=== PATIENT | female | born 1960 | race Caucasian/White ===

== ENCOUNTER 2017-09-05 18:45 | Inpatient (IN) | payer MEDICAID ==
[~2017-09-05] VITALS: Ht 149.9 cm; Wt 68.9 kg
[2017-09-05 18:48] VITALS: BP_SYST 106
[2017-09-05 21:06] LABS: BASOPHILS # (AUTO) 0.1 K/uL (0.0-0.2); BASOPHILS % (AUTO) 0.5 % (0.0-2.0); EOSINOPHILS # (AUTO) 0.1 K/uL (0.0-0.4); HEMATOCRIT 46.2 % (36-48); HEMOGLOBIN 15.1 g/dL (12.0-16.0); LYMPHOCYTES # (AUTO) 2.1 K/uL (1.0-5.5); LYMPHOCYTES % (AUTO) 17.9 % (20.5-51.5); MEAN CORPUSCULAR HEMOGLOBIN 33 pg (27-31); MEAN CORPUSCULAR HGB CONC 33 % (32-36); MEAN CORPUSCULAR VOLUME 101 fL (79.0-98.0); MONOCYTES # (AUTO) 0.7 K/uL (0.0-1.0); MONOCYTES % (AUTO) 5.8 % (1.7-9.3); NEUTROPHILS # (AUTO) 8.5 K/uL (1.8-7.7); NEUTROPHILS % (AUTO) 74.8 % (40.0-70.0); PLATELET COUNT (AUTO) 376 K/uL (130-430); RED BLOOD CELL COUNT(AUTO) 4.58 MIL/uL (4.2-6.2); WHITE BLOOD COUNT (AUTO) 11.5 K/uL (4.8-10.8)
[2017-09-05 21:26] LABS: CALCIUM 9.6 mg/dL (8.4-11.0); CREATININE 0.69 mg/dL (0.55-1.30); POTASSIUM 4.1 mmol/L (3.5-5.1)
[2017-09-05 21:32] LABS: ALBUMIN 2.4 g/dL (3.4-4.8); TOTAL BILIRUBIN 0.2 mg/dL (0.0-1.0)
[2017-09-05] MEDS ORDERED: VANCOMYCIN HCL 1,000 MG in NS 250 ML IV ONE (22:00)
[2017-09-05] MEDS ORDERED: PIPERACILLIN/TAZO 3.375 GM in NS 50 ML IV ONE (22:00)
[2017-09-05] MEDS ORDERED: OXYB5TAB11 PO (22:02)
[2017-09-05] MEDS ORDERED: REM15 PO (22:02)
[2017-09-05] MEDS ORDERED: ASPI-1063 PO (22:02)
[2017-09-05] MEDS ORDERED: ALEN10TA6 PO (22:02)
[2017-09-05] MEDS ORDERED: ENAL5TAB85 PO (22:02)
[2017-09-05] MEDS ORDERED: CALC-226 PO (22:02)
[2017-09-05] MEDS ORDERED: SIMV20TA2 PO (22:02)
[2017-09-05] MEDS ORDERED: ESCI10TA PO (22:02)
[2017-09-05] MEDS ORDERED: TYC3 PO (22:02)
[2017-09-05] MEDS ORDERED: EFAV600T PO (22:02)
[2017-09-05] MEDS ORDERED: MULT PO (22:02)
[2017-09-05] MEDS ORDERED: ALBMDI INH (22:02)
[2017-09-05] MEDS ORDERED: VITD2000 PO (22:02)
[2017-09-05] MEDS ORDERED: OLAN15TA3 PO (22:02)
[2017-09-05] MEDS ORDERED: PHEN100C4 PO (22:02)
[2017-09-05] MEDS ORDERED: BACL10TA PO (22:02)
[2017-09-05] MEDS ORDERED: VANCOMYCIN HCL 1000 MG/VIAL IV ONE (22:50)
[2017-09-05] MEDS ORDERED: PIPERACILLIN/TAZOBACTAM 3.375 GM/VIAL (ZOSYN) IV ONE (22:51)
[2017-09-05] MEDS ORDERED: NACL 0.9% 1,000 ML IV ONE (23:00)
[2017-09-05 23:29] VITALS: BP_SYST 111
[2017-09-05] MEDS: MORPHINE 2 MG/ML INJ. SYRINGE IVP PRN (23:57)
[2017-09-06] VITALS (7 sets, daily range): BP systolic 95–117
[2017-09-06] MEDS ORDERED: IPRATROPIUM BROM 0.5 MG/2.5 ML VIAL.NEB (ATROVENT) INH PRN (04:45)
[2017-09-06] MEDS ORDERED: ALBUTEROL SULFATE 0.083% 2.5 MG/3 ML VIAL.NEB INH PRN (04:45)
[2017-09-06] MEDS ORDERED: ONDANSETRON HCL 4 MG/2 ML VIAL IVP PRN (04:45)
[2017-09-06] MEDS ORDERED: ACETAMINOPHEN/CODEINE 300 MG-30 MG TABLET PO PRN (04:45)
[2017-09-06] MEDS ORDERED: ALENDRONATE SODIUM 10 MG TABLET (FOSAMAX) PO SCH (06:00)
[2017-09-06] MEDS ORDERED: PIPERACILLIN/TAZO 3.375 GM in NS 50 ML IV SCH (06:00)
[2017-09-06] MEDS: IPRATROPIUM BROM 0.5 MG/2.5 ML VIAL.NEB (ATROVENT) INH SCH ×5 (07:00→23:00)
[2017-09-06] MEDS: ALBUTEROL SULFATE 0.083% 2.5 MG/3 ML VIAL.NEB INH SCH ×5 (07:00→23:00)
[2017-09-06] MEDS: ENALAPRIL MALEATE 5 MG TABLET (VASOTEC) PO SCH ×2 (09:00→20:50)
[2017-09-06] MEDS ORDERED: ESCITALOPRAM OXALATE 10 MG TABLET PO SCH (09:00)
[2017-09-06] MEDS: CALCIUM CARBONATE/VITAMIN D3 1 TAB TABLET PO SCH (09:05)
[2017-09-06] MEDS: OXYBUTYNIN CHLORIDE 5 MG TABLET PO SCH ×3 (09:05→20:50)
[2017-09-06] MEDS: MORPHINE 2 MG/ML INJ. SYRINGE IVP PRN ×4 (09:05→22:09)
[2017-09-06] MEDS: CHOLECALCIFEROL (VITAMIN D3) 2,000 UNIT TABLET PO SCH (09:06)
[2017-09-06] MEDS: CITALOPRAM HYDROBROMIDE 20 MG TABLET PO SCH (09:06)
[2017-09-06] MEDS: PHENYTOIN 100 MG CAPSULE PO SCH ×3 (09:06→20:51)
[2017-09-06] MEDS: ASPIRIN 81 MG TABLET(ECOTRIN) PO SCH (09:06)
[2017-09-06] MEDS: BACLOFEN 10 MG TABLET PO SCH ×2 (09:06→20:50)
[2017-09-06] MEDS: ceFAZolin SODIUM 1 GM in D5W 50 ML IV SCH ×2 (14:24→21:02)
[2017-09-06] MEDS: KETOCONAZOLE 2%, 60 GM TOPICAL CREAM. (NIZORAL) TP SCH (14:25)
[2017-09-06] MEDS: VANCOMYCIN HCL 1,000 MG in NS 250 ML IV SCH (15:21)
[2017-09-06] MEDS: SIMVASTATIN 20 MG TABLET PO SCH (20:50)
[2017-09-06] MEDS: OLANZapine 5 MG TABLET PO SCH (20:50)
[2017-09-06] MEDS: MIRTAZAPINE 15 MG TABLET PO SCH (20:50)
[2017-09-07] MEDS: MORPHINE 2 MG/ML INJ. SYRINGE IVP PRN ×5 (01:59→22:20)
[2017-09-07] MEDS: VANCOMYCIN HCL 1,000 MG in NS 250 ML IV SCH ×2 (02:03→15:35)
[2017-09-07] MEDS: IPRATROPIUM BROM 0.5 MG/2.5 ML VIAL.NEB (ATROVENT) INH SCH ×6 (03:00→23:00)
[2017-09-07] MEDS: ALBUTEROL SULFATE 0.083% 2.5 MG/3 ML VIAL.NEB INH SCH ×6 (03:00→23:00)
[2017-09-07 03:45] VITALS: BP_SYST 94
[2017-09-07] MEDS: ceFAZolin SODIUM 1 GM in D5W 50 ML IV SCH ×3 (05:21→20:54)
[2017-09-07 07:33] LABS: BASOPHILS % (AUTO) 0.3 % (0.0-2.0); EOSINOPHILS # (AUTO) 0.1 K/uL (0.0-0.4); EOSINOPHILS % (AUTO) 1.8 % (0.0-4.0); HEMATOCRIT 39.3 % (36-48); HEMOGLOBIN 13.3 g/dL (12.0-16.0); LYMPHOCYTES # (AUTO) 1.6 K/uL (1.0-5.5); LYMPHOCYTES % (AUTO) 19.5 % (20.5-51.5); MEAN CORPUSCULAR HEMOGLOBIN 34 pg (27-31); MEAN CORPUSCULAR HGB CONC 34 % (32-36); MEAN CORPUSCULAR VOLUME 99 fL (79.0-98.0); MONOCYTES # (AUTO) 0.6 K/uL (0.0-1.0); MONOCYTES % (AUTO) 6.8 % (1.7-9.3); NEUTROPHILS % (AUTO) 71.6 % (40.0-70.0); PLATELET COUNT (AUTO) 291 K/uL (130-430); RED BLOOD CELL COUNT(AUTO) 3.96 MIL/uL (4.2-6.2); WHITE BLOOD COUNT (AUTO) 8.3 K/uL (4.8-10.8)
[2017-09-07 07:36] LABS: CALCIUM 8.6 mg/dL (8.4-11.0); CREATININE 0.55 mg/dL (0.55-1.30); POTASSIUM 3.9 mmol/L (3.5-5.1)
[2017-09-07 07:43] LABS: TOTAL BILIRUBIN 0.2 mg/dL (0.0-1.0)
[2017-09-07 08:06] VITALS: BP_SYST 127
[2017-09-07] MEDS: KETOCONAZOLE 2%, 60 GM TOPICAL CREAM. (NIZORAL) TP SCH (08:08)
[2017-09-07] MEDS: CITALOPRAM HYDROBROMIDE 20 MG TABLET PO SCH (08:08)
[2017-09-07] MEDS: CHOLECALCIFEROL (VITAMIN D3) 2,000 UNIT TABLET PO SCH (08:09)
[2017-09-07] MEDS: ENALAPRIL MALEATE 5 MG TABLET (VASOTEC) PO SCH ×2 (08:09→20:53)
[2017-09-07] MEDS: ASPIRIN 81 MG TABLET(ECOTRIN) PO SCH (08:09)
[2017-09-07] MEDS: CALCIUM CARBONATE/VITAMIN D3 1 TAB TABLET PO SCH (08:10)
[2017-09-07] MEDS: BACLOFEN 10 MG TABLET PO SCH ×2 (08:10→20:53)
[2017-09-07] MEDS: OXYBUTYNIN CHLORIDE 5 MG TABLET PO SCH ×3 (08:11→20:53)
[2017-09-07] MEDS: PHENYTOIN 100 MG CAPSULE PO SCH ×3 (08:11→20:52)
[2017-09-07 11:30] VITALS: BP_SYST 110
[2017-09-07 15:22] VITALS: BP_SYST 118
[2017-09-07 20:20] VITALS: BP_SYST 98
[2017-09-07] MEDS: MIRTAZAPINE 15 MG TABLET PO SCH (20:53)
[2017-09-07] MEDS: OLANZapine 5 MG TABLET PO SCH (20:53)
[2017-09-07] MEDS: SIMVASTATIN 20 MG TABLET PO SCH (20:53)
[2017-09-07 23:30] VITALS: BP_SYST 95
[2017-09-08 03:50] VITALS: BP_SYST 96
[2017-09-08] MEDS: VANCOMYCIN HCL 1,000 MG in NS 250 ML IV SCH ×2 (04:00→15:51)
[2017-09-08] MEDS: ceFAZolin SODIUM 1 GM in D5W 50 ML IV SCH ×2 (05:54→14:14)
[2017-09-08 08:00] VITALS: BP_SYST 104
[2017-09-08] MEDS: ASPIRIN 81 MG TABLET(ECOTRIN) PO SCH (08:16)
[2017-09-08] MEDS: BACLOFEN 10 MG TABLET PO SCH (08:16)
[2017-09-08] MEDS: CALCIUM CARBONATE/VITAMIN D3 1 TAB TABLET PO SCH (08:16)
[2017-09-08] MEDS: PHENYTOIN 100 MG CAPSULE PO SCH ×2 (08:17→15:50)
[2017-09-08] MEDS: CHOLECALCIFEROL (VITAMIN D3) 2,000 UNIT TABLET PO SCH (08:17)
[2017-09-08] MEDS: ENALAPRIL MALEATE 5 MG TABLET (VASOTEC) PO SCH (08:17)
[2017-09-08] MEDS: CITALOPRAM HYDROBROMIDE 20 MG TABLET PO SCH (08:18)
[2017-09-08] MEDS: OXYBUTYNIN CHLORIDE 5 MG TABLET PO SCH ×2 (08:18→15:50)
[2017-09-08] MEDS: KETOCONAZOLE 2%, 60 GM TOPICAL CREAM. (NIZORAL) TP SCH (08:18)
[2017-09-08] MEDS: MORPHINE 2 MG/ML INJ. SYRINGE IVP PRN ×2 (08:20→14:21)
[2017-09-08 12:08] VITALS: BP_SYST 97
[2017-09-08] MEDS ORDERED: CEPH-568 PO (16:03)
[2017-09-08] MEDS ORDERED: CLIN-77 PO (16:04)
[2017-09-08 16:20] VITALS: BP_SYST 97
[2017-09-08 16:55] VITALS: BP_SYST 97
== END 2017-09-08 17:25 | disposition home or self-care (01) | DRG 894 ==
LOC: SED 18:45 → SMU 23:07
PROVIDERS: ADMIT Internal Medicine Hospice and Palliative Medicine; ATTEND Internal Medicine Hospice and Palliative Medicine
DX: B20 Human immunodeficiency virus [HIV] disease (principal); E11.51 Type 2 diabetes mellitus with diabetic peripheral angiopathy without gangrene; L03.115 Cellulitis of right lower limb; E44.1 Mild protein-calorie malnutrition; I10 Essential (primary) hypertension; B35.3 Tinea pedis; J44.9 Chronic obstructive pulmonary disease, unspecified; Z79.82 Long term (current) use of aspirin; Z79.899 Other long term (current) drug therapy
CPT/HCPCS: 36415; 80053; 80185-TC; 80202-TC; 83605; 85025; 87040-TC; 93005; 93971; 94640; 94760; 96365; 99291; J0690; J2270; J2543; J3370; J7030; J7050; J7060